=== PATIENT | female | born 1990 | race Hispanic/Latino ===

== ENCOUNTER 2018-11-13 08:02 | Day surgery (SDC) | payer BC ==
[2018-10-30 10:08] VITALS: BMI 28.1
[2018-11-13] MEDS ORDERED: Midazolam 2 MG/2 ML VIAL ONE (09:32)
[2018-11-13] MEDS ORDERED: Propofol 10 mg/ml Inj (20 ML) ONE (09:33)
[2018-11-13] MEDS ORDERED: HYDROmorphone 0.5 mg/0.5 ml ISec IVP PRN (09:46)
[2018-11-13] MEDS ORDERED: Silver Nitrate Topical - Stick ONE ×2 (10:02→10:27)
[2018-11-13 11:53] VITALS: RESP 18; TEMP 97.8
[2018-11-13 12:19] VITALS: BP 121/66; PULSE 78; O2SAT 98
--- NOTE | 2018-11-14 02:28 | OP ---
PROCEDURE DATE: 11/13/2018 PREOPERATIVE DIAGNOSIS: Abnormal uterine bleeding, submucosal myoma. POSTOPERATIVE DIAGNOSIS: Abnormal uterine bleeding, submucosal myoma. PROCEDURE PERFORMED: Hysteroscopic myomectomy and dilation and curettage. SURGEON: Haven Alcocer MD OPERATIVE FINDINGS: An 8-week size anteverted uterus, bilateral ostia visualized, myoma noted in the left tubal ostium, carefully resected, good hemostasis was noted. SPECIMEN SENT TO PATHOLOGY: Endometrial curettings, submucosal myoma. ESTIMATED BLOOD LOSS: 5 mL. BLOOD PRODUCTS: None. COMPLICATIONS: None. DESCRIPTION OF PROCEDURE: The patient was taken to the operating room where she was given anesthesia. Once it was found to be adequate, she was placed on the operating table in dorsal supine position with legs supported using stirrups. The patient was then prepped and draped in the usual sterile fashion. A time-out confirmed correct patient and correct procedure. Bimanual exam was performed with the above-mentioned findings. A Mcclendon retractor was placed in the anterior and posterior fornix of the vagina. A single-tooth tenaculum was placed in the anterior lip of the cervix. The uterus was then sounded to 7 cm. Following this, the cervix was sequentially dilated to allow for introduction of an 8-mm hysteroscope under direct visualization. Using normal saline as the distention media, bilateral ostia were visualized, there was a mass noted. The MyoSure device was carefully inserted to resect the mass. Good hemostasis was noted. The hysteroscope was then removed. Gentle curettage was done, labeled as endometrial curetting. The hysteroscope was then re-introduced. There was good hemostasis noted. All instruments were removed. There was good hemostasis noted at the tenaculum puncture site. At the end of the procedure, all needle, sponge and instrument counts were noted to be correct x2. The patient tolerated the procedure well and was transferred to the recovery room in stable condition. Haven Alcocer MD
== END 2018-11-13 12:13 | disposition home or self-care (01) ==
LOC: C.SDS 08:02
PROVIDERS: ATTEND Obstetrics & Gynecology
DX: N93.9 Abnormal uterine and vaginal bleeding, unspecified (principal); N83.8 Other noninflammatory disorders of ovary, fallopian tube and broad ligament; D25.0 Submucous leiomyoma of uterus
CPT/HCPCS: 36415; 58545; 86850; 86900; 88305; J1170; J2250; J2704; J3010